=== PATIENT | female | born 1940 | race African-American/Black ===

== ENCOUNTER 2017-11-16 14:58 | Inpatient (IN) | payer MEDICARE, OTHER ==
[~2017-11-16] VITALS: Ht 152.4 cm; Wt 66.7 kg
--- NOTE | 2017-11-16 15:00 | NUR ---
DR MOULTON AT THE BEDSIDE FOR EVAL AND EXAM.
[2017-11-16] MEDS ORDERED: MORPHINE SULFATE 4 MG/1 ML DISP.SYRIN IV ONE (15:30)
[2017-11-16] MEDS ORDERED: ONDANSETRON 4 MG/2 ML VIAL IV ONE (15:30)
[2017-11-16] MEDS ORDERED: ASPIRIN 325 MG TABLET PO ONE (15:30)
[2017-11-16] MEDS ORDERED: MIRA50TA PO (15:35)
[2017-11-16] MEDS ORDERED: ASPI-612 PO (15:35)
[2017-11-16] MEDS ORDERED: ATOR20TA PO (15:35)
[2017-11-16] MEDS ORDERED: CELE200C PO (15:35)
[2017-11-16] MEDS ORDERED: TOPI25TA49 PO (15:35)
[2017-11-16] MEDS ORDERED: FOLI1TAB16 PO (15:35)
[2017-11-16] MEDS ORDERED: ATEN50TA PO (15:35)
[2017-11-16] MEDS ORDERED: CHOL100045 PO (15:35)
[2017-11-16] MEDS ORDERED: MECL12.582 PO (15:35)
[2017-11-16] MEDS ORDERED: HYDR-3326 PO (15:35)
[2017-11-16] MEDS ORDERED: OMEP1PAC3 PO (15:35)
[2017-11-16] MEDS ORDERED: ONDANSETRON 4 MG/2 ML VIAL ONE (15:36)
[2017-11-16] MEDS ORDERED: ASPIRIN 325 MG TABLET ONE (15:36)
[2017-11-16] MEDS ORDERED: MORPHINE SULFATE 4 MG/1 ML DISP.SYRIN ONE (15:36)
[2017-11-16 16:02] LABS: BASOPHILS % (AUTO) 0.5 % (0.0-2.0); EOSINOPHILS # (AUTO) 0.3 K/uL (0.0-0.7); EOSINOPHILS % (AUTO) 5.3 % (0.0-7.0); HEMATOCRIT 32.3 % (31.2-41.9); HEMOGLOBIN 10.4 g/dL (10.9-14.3); LYMPHOCYTES # (AUTO) 1.8 K/uL (20.0-40.0); LYMPHOCYTES % (AUTO) 28.3 % (20.5-51.5); MEAN CORPUSCULAR HEMOGLOBIN 27.7 uug (24.7-32.8); MEAN CORPUSCULAR HGB CONC 32 g/dL (32.3-35.6); MEAN CORPUSCULAR VOLUME 86.3 fL (75.5-95.3); MONOCYTES # (AUTO) 0.4 K/uL (2.0-10.0); MONOCYTES % (AUTO) 6.7 % (0.0-11.0); NEUTROPHILS # (AUTO) 3.7 K/uL (1.8-8.9); NEUTROPHILS % (AUTO) 59.2 % (38.5-71.5); PLATELET COUNT (AUTO) 131 K/uL (179-408); RED BLOOD CELL COUNT(AUTO) 3.75 MIL/uL (3.63-4.92); WHITE BLOOD COUNT (AUTO) 6.2 K/uL (3.8-11.8)
[2017-11-16 16:24] LABS: CARBON DIOXIDE 19 mmol/L (21-32); CHLORIDE 105 mmol/L (98-107); CREATININE 0.5 mg/dL (0.6-1.3); GLUCOSE 73 mg/dL (74-106); POTASSIUM 3.8 mmol/L (3.5-5.1); UREA NITROGEN, BLOOD 11 mg/dL (7-18)
[2017-11-16 16:29] LABS: ALANINE AMINOTRANSFERASE 23 U/L (14-59); ALKALINE PHOSPHATASE 31 U/L (50-136); ASPARTATE AMINOTRANSFERASE 16 U/L (15-37); BILIRUBIN,DIRECT 0.1 mg/dL (0.0-0.2); BILIRUBIN,TOTAL 0.3 mg/dL (0.2-1.0); TOTAL PROTEIN, SERUM 4.6 g/dL (6.4-8.2)
--- NOTE | 2017-11-16 17:00 | NUR ---
Patient is resting comfortably in bed with eyes closed, NAD NOTED.
--- NOTE | 2017-11-16 18:25 | NUR ---
Report from ER received by my fellow orientee, client's arrival to the med-surg/tele floor is expected to be after 1829
--- NOTE | 2017-11-16 18:45 | NUR ---
Received client from ER via chip accompanied by daughter and one transport/FOOD COOKING MACHINE OPERATOR. Client is in stable condition and good spirits stating she is ready to walk out the hospital. Noted a 20g IV line on her right forearm attached to a primary line and empty hydration bag. Primary tubing and empty bag removed. Placed an extension set, flushed line and free from infiltration. No apparent s/s of pain, distress, discomfort or SOB. Bed at lowest position for safety and call light within reach for assistance.
[2017-11-16 18:50] VITALS: BP 159/65
--- NOTE | 2017-11-16 19:00 | NUR ---
ADMITTED PATIENT IN TELE UNIT UNDER THE CARE OF DR. WHITFIELD, BELONGING LIST DONE.
--- NOTE | 2017-11-16 19:05 | NUR ---
Received call from DR. Hernandez surgery doctor from surgical center and stated he would like an update on the patient. Informed that patient was in stable and good condition.
--- NOTE | 2017-11-16 19:15 | NUR ---
Hospitalist aware of client's arrival to the med-surg/ tele unit and endorse that the pharmacy grad intern nurse will be needing orders.
[2017-11-16] MEDS ORDERED: HYDROCODONE/APAP 5-325MG TABLET PO PRN (20:00)
[2017-11-16] MEDS ORDERED: ACETAMINOPHEN 325 MG TABLET PO PRN (20:15)
[2017-11-16] MEDS ORDERED: ONDANSETRON 4 MG/2 ML VIAL IV PRN (20:15)
[2017-11-16] MEDS ORDERED: MAGNESIUM HYDROXIDE 30 ML LIQUID UDC PO PRN (20:15)
[2017-11-16] MEDS ORDERED: CLONIDINE HCL 0.1 MG TABLET PO PRN (20:15)
[2017-11-16] MEDS ORDERED: TEMAZEPAM 7.5 MG CAPSULE PO PRN (20:15)
[2017-11-16 20:27] VITALS: BP 149/66
[2017-11-16] MEDS ORDERED: DOCUSATE SODIUM 250 MG CAPSULE PO SCH (21:00)
[2017-11-16] MEDS: DOCUSATE SODIUM 100 MG CAPSULE PO SCH (21:43)
[2017-11-16] MEDS: ATORVASTATIN 20 MG TABLET PO SCH (21:43)
[2017-11-17 00:57] VITALS: BP 135/66
[2017-11-17 04:00] VITALS: BP 131/51
--- NOTE | 2017-11-17 05:58 | NUR ---
PATIENT SLEPT WELL, NO SOB NO CHEST PAIN NOTED, RYTHM SINUS TACHY, KEPT CLEAN AND DRY, WEAR DIAPER, BP STABLE AT THIS TIME. CONT TO MONITOR.
[2017-11-17] MEDS: PANTOPRAZOLE SODIUM 40 MG TABLET.DR PO SCH (06:33)
[2017-11-17 06:46] LABS: BASOPHILS % (AUTO) 0.5 % (0.0-2.0); EOSINOPHILS # (AUTO) 0.4 K/uL (0.0-0.7); HEMATOCRIT 36.8 % (31.2-41.9); LYMPHOCYTES # (AUTO) 2.4 K/uL (20.0-40.0); LYMPHOCYTES % (AUTO) 31.2 % (20.5-51.5); MEAN CORPUSCULAR HEMOGLOBIN 27.9 uug (24.7-32.8); MEAN CORPUSCULAR HGB CONC 33 g/dL (32.3-35.6); MEAN CORPUSCULAR VOLUME 85.2 fL (75.5-95.3); MONOCYTES # (AUTO) 0.7 K/uL (2.0-10.0); MONOCYTES % (AUTO) 9.3 % (0.0-11.0); NEUTROPHILS # (AUTO) 4.1 K/uL (1.8-8.9); PLATELET COUNT (AUTO) 180 K/uL (179-408); RED BLOOD CELL COUNT(AUTO) 4.31 MIL/uL (3.63-4.92); WHITE BLOOD COUNT (AUTO) 7.6 K/uL (3.8-11.8)
[2017-11-17 07:10] LABS: ALANINE AMINOTRANSFERASE 28 U/L (14-59); ALKALINE PHOSPHATASE 48 U/L (50-136); ASPARTATE AMINOTRANSFERASE 27 U/L (15-37); BILIRUBIN,TOTAL 0.7 mg/dL (0.2-1.0); CARBON DIOXIDE 27 mmol/L (21-32); CHLORIDE 108 mmol/L (98-107); CHOLESTEROL 121 mg/dL (<200); CREATININE 1.1 mg/dL (0.6-1.3); GLUCOSE 106 mg/dL (74-106); HDL CHOLESTEROL 39 mg/dL (40-60); MAGNESIUM 1.8 mg/dL (1.8-2.4); PHOSPHOROUS 4.3 mg/dL (2.5-4.9); POTASSIUM 3.8 mmol/L (3.5-5.1); TOTAL PROTEIN, SERUM 6.8 g/dL (6.4-8.2); TRIGLYCERIDES 122 MG/DL (30-150); UREA NITROGEN, BLOOD 17 mg/dL (7-18)
[2017-11-17 07:12] LABS: IRON, SERUM 83 ug/dL (50-175)
[2017-11-17 07:49] LABS: THYROID STIMULATING HORMONE 0.827 mIU/mL (0.358-3.740)
[2017-11-17] MEDS: TOPIRAMATE 25 MG TABLET PO SCH (08:35)
[2017-11-17] MEDS: CHOLECALCIFEROL 1,000 UNIT TABLET PO SCH (08:35)
[2017-11-17] MEDS: FUROSEMIDE 20 MG/2 ML VIAL IV SCH ×2 (08:35→08:47)
[2017-11-17] MEDS: CELECOXIB 200 MG CAPSULE PO SCH (08:36)
[2017-11-17] MEDS: ASPIRIN 325 MG TABLET PO SCH (08:36)
[2017-11-17] MEDS: FOLIC ACID 1 MG TABLET PO SCH (08:36)
[2017-11-17] MEDS: ATENOLOL 50 MG TABLET PO SCH (08:36)
[2017-11-17 11:32] VITALS: BP 108/51
[2017-11-17 15:28] VITALS: BP 98/41
--- NOTE | 2017-11-17 18:01 | NUR ---
Patient to have cardiac catherization tomorrow scheduled at 1230. NPO and IVF after midnight, patient notified, patient verbalized understanding. Patient prefers to sign consent tomorrow. Safety measures in place, all needs met. Will endorse to overnight houseperson RN.
--- NOTE | 2017-11-17 19:10 | NUR ---
Received patient in bed, awake, denies any pain/discomforts at this time. Great grand daughter at bedside. Safety measures and fall precaution maintained. Continue plan of care.
[2017-11-17] MEDS: DOCUSATE SODIUM 100 MG CAPSULE PO SCH (20:25)
[2017-11-17] MEDS: ATORVASTATIN 20 MG TABLET PO SCH (20:25)
[2017-11-17 20:42] VITALS: BP 122/62
[2017-11-18] VITALS: BP 132/65
--- NOTE | 2017-11-18 | NUR ---
NPO order initiated. IV fluid started. Continue to monitor.
[2017-11-18] MEDS ORDERED: IV NS 1000 ML 1,000 ML IV PRN (00:05)
[2017-11-18 04:00] VITALS: BP 125/62
[2017-11-18] MEDS: PANTOPRAZOLE SODIUM 40 MG TABLET.DR PO SCH (05:51)
--- NOTE | 2017-11-18 06:11 | NUR ---
Slept in between care. Some confusion Uncooperative with care. Ambulatory to the bathroom with FWW with slow and unsteady gait, Requires constant supervision with mobility/ADL's. Kept NPO as ordered. All needs attended and met. Continue current plan of care.
[2017-11-18] MEDS: ASPIRIN 325 MG TABLET PO SCH (08:07)
[2017-11-18] MEDS: TOPIRAMATE 25 MG TABLET PO SCH (08:07)
[2017-11-18] MEDS: CELECOXIB 200 MG CAPSULE PO SCH (08:07)
[2017-11-18] MEDS: FOLIC ACID 1 MG TABLET PO SCH (08:07)
[2017-11-18] MEDS: CHOLECALCIFEROL 1,000 UNIT TABLET PO SCH (08:07)
[2017-11-18] MEDS: FUROSEMIDE 20 MG/2 ML VIAL IV SCH (08:20)
[2017-11-18 08:22] LABS: CARBON DIOXIDE 28 mmol/L (21-32); CHLORIDE 107 mmol/L (98-107); GLUCOSE 105 mg/dL (74-106); PHOSPHOROUS 4.3 mg/dL (2.5-4.9); POTASSIUM 4.4 mmol/L (3.5-5.1); UREA NITROGEN, BLOOD 19 mg/dL (7-18)
[2017-11-18 08:26] LABS: BASOPHILS % (AUTO) 0.5 % (0.0-2.0); EOSINOPHILS # (AUTO) 0.5 K/uL (0.0-0.7); EOSINOPHILS % (AUTO) 7.2 % (0.0-7.0); HEMATOCRIT 37.8 % (31.2-41.9); HEMOGLOBIN 12.4 g/dL (10.9-14.3); LYMPHOCYTES # (AUTO) 2.2 K/uL (20.0-40.0); LYMPHOCYTES % (AUTO) 30.6 % (20.5-51.5); MEAN CORPUSCULAR HEMOGLOBIN 27.9 uug (24.7-32.8); MEAN CORPUSCULAR HGB CONC 33 g/dL (32.3-35.6); MEAN CORPUSCULAR VOLUME 85.1 fL (75.5-95.3); MONOCYTES # (AUTO) 0.6 K/uL (2.0-10.0); MONOCYTES % (AUTO) 8.7 % (0.0-11.0); NEUTROPHILS # (AUTO) 3.9 K/uL (1.8-8.9); PLATELET COUNT (AUTO) 172 K/uL (179-408); RED BLOOD CELL COUNT(AUTO) 4.43 MIL/uL (3.63-4.92); WHITE BLOOD COUNT (AUTO) 7.3 K/uL (3.8-11.8)
--- NOTE | 2017-11-18 08:30 | NUR ---
Patient signed 2 copies of consent forms for cardiac procedure. 1 copy placed in patient's chart, 1 copy with patient's transfer documents. Patient to be transferred to [facility]. [facility] ambulance transport 11:00-11:15am.
[2017-11-18] MEDS: ATENOLOL 50 MG TABLET PO SCH (09:00)
[2017-11-18 11:11] VITALS: BP 124/55
--- NOTE | 2017-11-18 12:25 | NUR ---
Patient transferred via gurney. Patient is alert, in no distress. Tele monitor unit taken off the patient. IV site intact/patent. Transfer documents provided to the transport team/patient. Report given to Emilie at [facility].
--- NOTE | 2017-11-18 12:45 | NUR ---
Patient's address book and pen kept at [employer] locker #4 for safekeeping. Patient's daughter Ginette notified.
--- NOTE | 2017-11-18 17:30 | NUR ---
Report taken from [facility] [employer]. TR band on L wrist. ETA of patient in the unit approx 1900. Will endorse to film processing shift supervisor RN.
--- NOTE | 2017-11-18 18:30 | NUR ---
2nd call/report taken from DILCIA Lira at [facility]. Patient leaving [facility] via ambulance. TR band removed 1740 per RN.
--- NOTE | 2017-11-18 19:30 | NUR ---
PT RECEIVED FROM [facility] VIA AMBULANCE ON [facility]. REORIENTED TO ROOM. V/S STABLE. IN NO ACUTE DISTRESS. NO C/O PAIN AT THIS TIME. IV INTACT AND PATENT. 70 SINUS RHYTHM ON THE TELE MONITOR. ON RA, TOLERATING WELL. AFEBRILE. DRESSING ON LEFT WRIST CLEAN, DRY AND INTACT. SAFETY MEASURES IMPLEMENTED. BED ALARM SET. CALL LIGHT WITHIN REACH.
[2017-11-18 20:33] VITALS: BP 126/68
[2017-11-18] MEDS: DOCUSATE SODIUM 100 MG CAPSULE PO SCH (21:58)
[2017-11-18] MEDS: ATORVASTATIN 20 MG TABLET PO SCH (21:58)
[2017-11-19 00:01] VITALS: BP 127/67
--- NOTE | 2017-11-19 06:05 | NUR ---
END OF SHIFT NOTES. PT SLEPT WELL THROUGHOUT SHIFT. IN STABLE CONDITION. NO ACUTE CHANGES NOTED. ENCOURAGED PATIENT TO AVOID PRESSURE ON LEFT WRIST AND NO WEIGHT BARING. DRESSING CONT TO BE CLEAN, DRY, AND INTACT. SINUS RHYTHM ON THE TELE MONITOR. TOLERATED RA WELL. AFEBRILE. ALL NEEDS ATTENDED. SAFETY MAINTAINED. CALL LIGHT WITHIN REACH.
[2017-11-19] MEDS: PANTOPRAZOLE SODIUM 40 MG TABLET.DR PO SCH (06:06)
[2017-11-19 06:25] VITALS: BP 113/42
--- NOTE | 2017-11-19 07:00 | NUR ---
RECEIVED REPORT FROM AUTOMAT CAR ATTENDANT NURSE, PATIENT IN BED AWAKE, NO EVIDENCE OF DISTRESS NOTED, BED IN LOW POSITION, SIDE RAILS UP X2, BED ALARM ON.
[2017-11-19] MEDS: FUROSEMIDE 20 MG/2 ML VIAL IV SCH (08:23)
[2017-11-19] MEDS: CHOLECALCIFEROL 1,000 UNIT TABLET PO SCH (08:25)
[2017-11-19] MEDS: FOLIC ACID 1 MG TABLET PO SCH (08:25)
[2017-11-19] MEDS: TOPIRAMATE 25 MG TABLET PO SCH (08:25)
[2017-11-19] MEDS: ASPIRIN 325 MG TABLET PO SCH (08:25)
[2017-11-19] MEDS: ATENOLOL 50 MG TABLET PO SCH (08:27)
[2017-11-19 11:30] VITALS: BP 122/45
--- NOTE | 2017-11-19 12:00 | NUR ---
PATIENT WAS GIVEN DISCHARGE INSTRUCTIONS, IV REMOVED AND EDUCATION PROVIDED. PATIENT WAS THEN TAKEN TO MEET DAUGHTER BY WHEELCHAIR. NO DISTRESS NOTED AT TIME OF DISCHARGE. LEFT WRIST DRESSING INTACT AND NO APPARENT BLEEDING.
== END 2017-11-19 12:05 | disposition home or self-care (01) | DRG 280 ==
LOC: ER 14:58 → TELE 18:23
PROVIDERS: ADMIT Internal Medicine; ATTEND Internal Medicine
PROC: 4A023N7 Measurement of Cardiac Sampling and Pressure, Left Heart, Percutaneous Approach (ICD-10-PCS; principal; 2017-11-18)
PROC: B215YZZ Fluoroscopy of Left Heart using Other Contrast (ICD-10-PCS; 2017-11-18)
DX: I21.4 Non-ST elevation (NSTEMI) myocardial infarction (principal); E43 Unspecified severe protein-calorie malnutrition; D68.59 Other primary thrombophilia; E11.22 Type 2 diabetes mellitus with diabetic chronic kidney disease; D64.9 Anemia, unspecified; I13.10 Hypertensive heart and chronic kidney disease without heart failure, with stage 1 through stage 4 chronic kidney disease, or unspecified chronic kidney disease; N18.9 Chronic kidney disease, unspecified; I44.0 Atrioventricular block, first degree; N32.81 Overactive bladder; Z74.09 Other reduced mobility; Z90.710 Acquired absence of both cervix and uterus; E78.5 Hyperlipidemia, unspecified; M19.90 Unspecified osteoarthritis, unspecified site; Z96.651 Presence of right artificial knee joint; K21.9 Gastro-esophageal reflux disease without esophagitis
CPT/HCPCS: 36415; 70030-TC; 71045; 83550; 83735; 84100; 84443; 85025; 85730; 93005; 93307; A4663; J1940; J2270; J2405; J7030